=== PATIENT | female | born 1945 | race Caucasian/White ===

== ENCOUNTER 2016-09-10 06:45 | Inpatient (IN) | payer OTHER ==
[2016-09-07 13:45] VITALS: BMI 24.6
[2016-09-10] MEDS ORDERED: LIDOCAINE 1%-EPI 1:100,000 30 ML MDV IJ ONE (07:03)
[2016-09-10] MEDS ORDERED: THROMBIN (BOVINE) 5,000 UNIT VIAL TP ONE (07:03)
[2016-09-10] MEDS ORDERED: BUPIVACAINE HCL/PF 2.5 MG/ML - 30 ML VIAL IJ ONE (07:03)
[2016-09-10] MEDS ORDERED: BUPIVACAINE HCL/PF 0.5% (5MG/ML) 10 ML VIAL ONE (07:29)
[2016-09-10] MEDS ORDERED: MIDAZOLAM HCL 2 MG/2 ML SINGLE DOSE VIAL ONE ×3 (07:31→09:21)
[2016-09-10] MEDS ORDERED: oxyCODONE HCL 10 MG SUSTAINED ACTING TABLET PO ONE (07:34)
--- NOTE | 2016-09-10 07:40 | HP ---
History & Physical Update - History History: No Change - Physical Physical: No Change - Assessment Assessment: No Change - Plan Plan: No Change
[2016-09-10] MEDS ORDERED: LIDOCAINE 1%/EPI 1:100000 (50 ML MULTI DOSE VIAL) INF ONE (09:10)
[2016-09-10] MEDS ORDERED: ceFAZolin SODIUM 1 GM VIAL ONE (09:22)
[2016-09-10] MEDS ORDERED: ONDANSETRON 4 MG/2 ML VIAL ONE (09:22)
[2016-09-10] MEDS ORDERED: BUPIVACAINE HCL/PF 0.25% (2.5MG/ML) 10 ML VIAL IJ ONE ×2 (10:58)
[2016-09-10] MEDS: ONDANSETRON 4 MG/2 ML VIAL IVPB PRN (11:07)
[2016-09-10] MEDS ORDERED: ONDANSETRON 4 MG/2 ML VIAL IVPUSH PRN (11:10)
[2016-09-10] MEDS ORDERED: oxyCODONE HCL 5 MG TABLET PO PRN ×2 (11:14)
[2016-09-10] MEDS ORDERED: LACTATED RINGERS SOLUTION 1,000 ML IV SCH ×2 (11:15)
[2016-09-10] MEDS: ACETAMINOPHEN 1000 MG/100 ML VIAL (NON FORMULARY) IVPB ONE ×2 (11:31→12:40)
[2016-09-10] MEDS ORDERED: diazePAM 5 MG TABLET ONE (11:48)
[2016-09-10] MEDS ORDERED: diazePAM 2 MG TABLET PO ONE (12:00)
[2016-09-10] MEDS: diazePAM 5 MG TABLET PO ONE ×2 (12:46→12:52)
[2016-09-10] MEDS: CEFAZOLIN 1 GM/D5W 50 ML IVPB SCH (17:11)
[2016-09-10] MEDS: ACETAMINOPHEN 325 MG TABLET (FP) PO SCH (17:12)
[2016-09-10] MEDS: traMADol HCL 50 MG TABLET PO SCH (17:13)
--- NOTE | 2016-09-10 18:06 | OP ---
Operative Note - Note: Operative Date: 09/10/16 Pre-Operative Diagnosis: lumbar spondylolisthesis Operation: posterior lumbar decompression,fusion, instrumentation, transformainal interbody fusion of L4-L5 with allograft and neuromonitoring Post-Operative Diagnosis: Same as Pre-op Surgeon: Lul Navarrete Work Over Rig Operator: Azucena Wyatt Anesthesiologist/TECHNOLOGY LAB TEACHER: Celi Burden Anesthesia: Spinal Estimated Blood Loss (mls): 20 Fluid Volume Replaced (mls): 1,000 Operative Report Dictated: Yes
--- NOTE | 2016-09-10 18:10 | SURG ---
Surgery Binding Dyer Note Binding Dyer: Azucena Wyatt PA-C Date of Service: 09/10/16 Diagnosis: lumbar spondylolithesis Procedure: posterior lumbar decompression,fusion, instrumentation, transforaminal interbody fusion of L4-L5 with allograft and neuromonitoring I was present for the entirety of the operative procedure. For further detail, please refer to operative report. Visit type - Case Type Case Type: Scheduled Admission - Emergency Emergency Visit: No - New patient This patient is new to me today: Yes Date on this admission: 09/10/16 - Critical Care Critical Care patient: No
[2016-09-10] MEDS: CYCLOBENZAPRINE HCL 10 MG TABLET (FP) PO SCH (21:19)
[2016-09-11] MEDS: traMADol HCL 50 MG TABLET PO SCH ×3 (00:36→12:23)
[2016-09-11] MEDS: ACETAMINOPHEN 325 MG TABLET (FP) PO SCH ×3 (00:37→12:24)
[2016-09-11] MEDS: CEFAZOLIN 1 GM/D5W 50 ML IVPB SCH (00:39)
[2016-09-11] MEDS: CYCLOBENZAPRINE HCL 10 MG TABLET (FP) PO SCH ×2 (03:11→12:24)
[2016-09-11] MEDS: ONDANSETRON 4 MG/2 ML VIAL IVPB PRN (05:16)
[2016-09-11 06:03] VITALS: BP 142/79; TEMP 99
[2016-09-11] MEDS ORDERED: LEVOTHYROXINE NA 125 MCG TABLET (FP) PO SCH (07:00)
--- NOTE | 2016-09-11 07:19 | DS ---
Physical Exam: SUBJECTIVE: Patient seen and examined. Resting in position of comfort. Pain managed well via PRN meds. She has been oob and ambulating unassisted. Voiding spontaneously. Tolerating PO diet. Prior to surgery, pt c/o b/l LE pain (at it' s worst was a 10/10). Now s/p surgery, she states the pain is almost completely gone. Denies n/v/f/c, CP, SOB, dysuria or hematuria. OBJECTIVE: Vital Signs Temperature 99.0 F 09/11/16 06:00 Pulse Rate 111 H 09/11/16 06:00 Respiratory Rate 09/11/16 06:00 Blood Pressure 142/79 09/11/16 06:00 O2 Sat by Pulse Oximetry (%) 94 L 09/10/16 22:57 PHYSICAL EXAM GENERAL: The patient is awake, alert, and fully oriented, in no acute distress. HEAD: Normal with no signs of trauma. EYES: PERRL, extraocular movements intact, sclera anicteric, conjunctiva clear. ENT: Ears normal, nares patent, oropharynx clear without exudates, moist mucous membranes. NECK: Trachea midline, full range of motion, supple. LUNGS: Breath sounds equal, clear to auscultation bilaterally, no wheezes, no crackles, no accessory muscle use. HEART: Regular rate and rhythm, S1, S2 without murmur, rub or gallop. ABDOMEN: Soft, nontender, nondistended, normoactive bowel sounds, no guarding, no rebound, no hepatosplenomegaly, no masses. EXTREMITIES: 2+ pulses, warm, well-perfused, no edema. NEUROLOGICAL: Cranial nerves II through XII grossly intact. Normal speech, gait not observed. PSYCH: Normal mood, normal affect. SKIN: Lumbar incision x2 intact. Dressing c/d/i. No hematoma. HOSPITAL COURSE: Date of Admission:09/10/16 Date of Discharge: 09/11/16 The patient was admitted to the Med-Surg Unit after an elective repair of their L4-L5 spondylolithesis. Now, POD #1 s/p posterior lumbar decompression,fusion, instrumentation, transforaminal interbody fusion of L4-L5 with allograft and neuromonitoring. The day of surgery, the patient ambulated the hallways with assistance. Narcotic and non-narcotic pain management control was achieved with an oral and IV approach. POD #1 a lumbar xray was obtained and confirmed hardware placement at L4-L5, no fractures or dislocations. Yahaira-operative IV ABX were administered. DVT prophylaxis was achieved with SCDs and early ambulation. The patient ambulated with Physical Therapy and no services were recommended upon discharge. Narcotic scripts and or muscle relaxants were checked with [employer] MACHINE OPERATOR prior to escibe. The discharge instructions and an oral pain management plan were reviewed with the patient. All questions answered. Above plan discussed with Dr. Navarrete and agreed. Minutes to complete discharge: 15 <Juan Jose Cortez P - Last Filed: 09/11/16 07:14> Physical Exam: SUBJECTIVE: Patient seen and examined OBJECTIVE: Vital Signs Temperature 99.0 F 09/11/16 06:00 Pulse Rate 108 H 09/11/16 09:46 Respiratory Rate 18 09/11/16 08:00 Blood Pressure 142/79 09/11/16 06:00 O2 Sat by Pulse Oximetry (%) 96 09/11/16 09:46 PHYSICAL EXAM GENERAL: The patient is awake, alert, and fully oriented, in no acute distress. HEAD: Normal with no signs of trauma. EYES: PERRL, extraocular movements intact, sclera anicteric, conjunctiva clear. ENT: Ears normal, nares patent, oropharynx clear without exudates, moist mucous membranes. NECK: Trachea midline, full range of motion, supple. LUNGS: Breath sounds equal, clear to auscultation bilaterally, no wheezes, no crackles, no accessory muscle use. HEART: Regular rate and rhythm, S1, S2 without murmur, rub or gallop. ABDOMEN: Soft, nontender, nondistended, normoactive bowel sounds, no guarding, no rebound, no hepatosplenomegaly, no masses. EXTREMITIES: 2+ pulses, warm, well-perfused, no edema. NEUROLOGICAL: Cranial nerves II through XII grossly intact. Normal speech, gait not observed. PSYCH: Normal mood, normal affect. SKIN: Warm, dry, normal turgor, no rashes or lesions noted. LABS CBC,CMP WBC 14.3 K/mm3 (4.0-10.8) H 09/11/16 07:25 RBC 3.91 M/mm3 (3.60-5.2) 09/11/16 07:25 Hgb 12.8 GM/dl (10.7-15.3) 09/11/16 07:25 Hct 37.0 % (32.4-45.2) 09/11/16 07:25 MCV 94.6 fl (80-96) 09/11/16 07:25 MCHC 34.5 g/dl (32.0-36.0) 09/11/16 07:25 RDW 12.3 % (11.6-15.6) 09/11/16 07:25 Plt Count 197 K/MM3 (134-434) 09/11/16 07:25 MPV 8.9 fl (7.5-11.1) 09/11/16 07:25 Sodium 137 mmol/L (136-145) 09/11/16 07:25 Potassium 4.0 mmol/L (3.5-5.1) 09/11/16 07:25 Chloride 105 mmol/L (98-107) 09/11/16 07:25 Carbon Dioxide 24 mmol/L (22-28) 09/11/16 07:25 Anion Gap 8 (8-16) 09/11/16 07:25 BUN 12 mg/dl (7-18) 09/11/16 07:25 Creatinine 0.6 mg/dl (0.6-1.3) 09/11/16 07:25 Random Glucose 117 mg/dl (74-106) H 09/11/16 07:25 Calcium 8.6 mg/dl (8.4-10.2) 09/11/16 07:25 HOSPITAL COURSE: Date of Admission:09/10/16 Date of Discharge: 09/11/16 The patient was admitted to the Med-Surg Unit after an elective repair of their L4-5 Spondylolisthesis. The day of surgery, the patient ambulated the hallways with assistance. Narcotic and non-narcotic pain management control was achieved with an oral and IV approach. POD #1, the surgical drain was removed fully intact and without incident. An xray was obtained and confirmed hardware placement at L4-5, no fractures or dislocations. Yahaira-operative IV ABX were administered. DVT prophylaxis was achieved with SCDs and early ambulation. The patient ambulated with Physical Therapy and no services were recommended upon discharge. Narcotic scripts and or muscle relaxants were checked with [employer] MACHINE OPERATOR prior to escibe. The discharge instructions and an oral pain management plan were reviewed with the patient. All questions answered. Above plan discussed with Dr. Navarrete and agreed. patient seen and examined agree with above D/C planning <Lul Navarrete - Last Filed: 09/11/16 17:01> Visit type - Case Type Case Type: Scheduled Admission - New patient This patient is new to me today: Yes Date on this admission: 09/11/16 <Juan Jose Cortez - Last Filed: 09/11/16 07:14>
[2016-09-11 08:39] LABS: MCH 32.6 pg (25.7-33.7); MCHC 34.5 g/dl (32.0-36.0); MEAN CELL VOLUME 94.6 fl (80-96); MEAN PLT VOLUME 8.9 fl (7.5-11.1); PLATELET COUNT 197 K/MM3 (134-434); RDW 12.3 % (11.6-15.6); WHITE BLOOD COUNT 14.3 K/mm3 (4.0-10.8)
[2016-09-11 08:43] LABS: ANION GAP 8 (8-16); CALCIUM 8.6 mg/dl (8.4-10.2); CO2 24 mmol/L (22-28); CREATININE 0.6 mg/dl (0.6-1.3); GLUCOSE,RANDOM 117 mg/dl (74-106)
[2016-09-11 09:46] VITALS: PULSE 108
[2016-09-11] MEDS ORDERED: PT OWN MED DRAWER 7, Y5N ONE (09:46)
[2016-09-11] MEDS ORDERED: LISINOPRIL 20 MG TABLET (FP) PO SCH (10:00)
[2016-09-11] MEDS ORDERED: VERAPAMIL HCL 180 MG E.R. TABLET (FP) PO SCH (10:00)
[2016-09-11] MEDS ORDERED: ALPRAZolam 0.25 MG TABLET PO PRN (10:00)
--- NOTE | 2016-09-29 09:31 | OP ---
DATE OF OPERATION: 09/10/2016 PREOPERATIVE DIAGNOSIS: L4-L5 spondylosis. POSTOPERATIVE DIAGNOSIS: L4-L5 spondylosis. PROCEDURE PERFORMED: 1. L4-L5 transforaminal lumbar interbody fusion. 2. Placement of prosthetic cage. 3. Placement of instrumentation. 4. Hemilaminectomy. SURGEON: Lul Navarrete MD ADVERTISING COPYWRITER: HAILEE Soliman ESTIMATED BLOOD LOSS: 50 mL. INTRAVENOUS FLUID: Per Anesthesia. ANESTHESIA: Spinal. COMPLICATIONS: None. DISPOSITION: Patient brought to the PACU in stable condition. INDICATIONS FOR SURGERY: The patient is a female who has been suffering from significant pain from her back down her right leg. X-rays and MRI were completed, which noted that she had a spondylolisthesis at L4-L5 contributing to stenosis at that level. She had gone through an exhaustive course of treatment which included medications, physical therapy, as well as injections. Unfortunately, her pain continued to persist despite all this. At this point, risks, benefits, and alternatives were discussed, and the patient consented to surgery. OPERATIVE NOTE: Patient was brought to the operating room by the anesthesia staff. After appropriate patient identification was performed, spinal anesthesia was administered. The patient was able to position herself prone onto the OR table with all areas of bony prominences well-padded at this time. The C-arm was brought in. The L4-L5 pedicles were marked off. Lidocaine, 10 mL, with epinephrine was injected into her back. At this time, her back was prepped and draped in a sterile manner. At this point, a time-out was completed. An incision was made from the top of L4 down to the bottom of L5. Dissection was carried down to the fascia. Fascia was split at this time. Under C-arm guidance, trocars were advanced into both the L4 and L5 pedicles. Through the trocars, wires were inserted. Over the wires, tap was performed, and screws inserted. On the right-hand side, retractor blades were set up to expose the L4-L5 facet joint. This was confirmed with x-ray. Then, with a tj and osteotome, the facet joint was removed. The disc was entered using a series of pituitary, Kerrison rongeurs, and curettes. The discectomy was completed at this time. Bone graft was laid down. Cage with bone graft was placed in. A hemilaminectomy was completed at this time. Tulip heads were placed over the screws. A josue was placed. Capsule and compression was applied. On the left hand side, a josue was measured and placed in. Capsule and compression was applied. All extra instrumentation was removed at this time. AP and lateral x-rays confirmed the instrumentation to be in good position. The fascia was closed with a No. 1 Vicryl suture. The subcutaneous tissues were closed with 2-0 Vicryl suture. Skin was closed with 3-0 Monocryl suture. Dermabond was applied. Steri-Strips were applied. Sterile dressings were applied. Patient was placed supine on the OR bed and brought to the PACU in stable condition. Kortney PEREZ/[id number]
== END 2016-09-11 12:37 | disposition home or self-care (01) | DRG 460 ==
LOC: FM/S 06:45
PROVIDERS: ADMIT Orthopaedic Surgery Orthopaedic Surgery of the Spine; ATTEND Orthopaedic Surgery Orthopaedic Surgery of the Spine
PROC: 00NY0ZZ Release Lumbar Spinal Cord, Open Approach (ICD-10-PCS; 2016-09-10)
PROC: 0SG00A1 (ICD-10-PCS; principal; 2016-09-10 08:15)
DX: M43.16 Spondylolisthesis, lumbar region (principal); M48.06 Spinal stenosis, lumbar region; I10 Essential (primary) hypertension; E03.9 Hypothyroidism, unspecified
CPT/HCPCS: 36415; 72100-TC; 76001-TC; 80048; 85027; 94010; 94760; 97116-GP; 97162